=== PATIENT | female | born 1980 | race Caucasian/White ===

== ENCOUNTER 2018-01-04 21:49 | Emergency (ER) | payer OTHER ==
[~2018-01-04] VITALS: Ht 165.1 cm; Wt 56.7 kg
[~2018-01-04 21:49] MED LIST: LAMICTAL XR200 MG PO; NAPROSYN500 MG PO; ROBAXIN500 MG PO; XANAX 0.5 MG0.5 M1 PO; ZOFRAN4 MG PO
[2018-01-04] MEDS ORDERED: CYCLOBENZAPRINE10 MG PO (22:15)
[2018-01-04] MEDS ORDERED: ACETAMINOPHEN-1 EAC1 PO (22:15)
[2018-01-04] MEDS ORDERED: IBUPROFEN 600600 M1 PO (22:15)
[2018-01-04 22:24] VITALS: BP 128/53
== END 2018-01-04 22:25 | disposition home or self-care (01) ==
LOC: M.ERS 21:49
DX: S29.012A Strain of muscle and tendon of back wall of thorax, initial encounter (principal); M25.562 Pain in left knee; F32.9 Major depressive disorder, single episode, unspecified; Z90.710 Acquired absence of both cervix and uterus; Z88.6 Allergy status to analgesic agent; Z88.8 Allergy status to other drugs, medicaments and biological substances; V49.49XA Driver injured in collision with other motor vehicles in traffic accident, initial encounter; Y93.89 Activity, other specified; Y92.89 Other specified places as the place of occurrence of the external cause; Y99.8 Other external cause status

== ENCOUNTER 2018-05-24 07:39 | Emergency (ER) | payer OTHER ==
[~2018-05-24] VITALS: Ht 165.1 cm; Wt 54.4 kg
[~2018-05-24 07:39] MED LIST changes: +ACETAMINOPHEN-1 EAC1 PO; +CYCLOBENZAPRINE10 MG PO; +IBUPROFEN 600600 M1 PO
[2018-05-24 08:00] VITALS: BP 109/65
== END 2018-05-24 08:16 | disposition home or self-care (01) ==
LOC: M.ERS 07:39
DX: S20.412A Abrasion of left back wall of thorax, initial encounter (principal); R55 Syncope and collapse; F32.9 Major depressive disorder, single episode, unspecified; Z90.710 Acquired absence of both cervix and uterus; W22.8XXA Striking against or struck by other objects, initial encounter; Y93.89 Activity, other specified; Y92.89 Other specified places as the place of occurrence of the external cause; Y99.8 Other external cause status

== ENCOUNTER 2019-05-30 08:39 | Emergency (ER) | payer OTHER ==
[~2019-05-30] VITALS: Ht 165.1 cm; Wt 56.7 kg
[2019-05-30] MEDS ORDERED: SEROQUEL 50 MG50 MG PO (08:58)
[2019-05-30] MEDS ORDERED: BACTRIM DS TAB1 EACH PO (10:22)
[2019-05-30] MEDS ORDERED: KEFLEX500 M1 PO (10:22)
[2019-05-30] MEDS ORDERED: DIFLUCAN150 MG PO (10:22)
[2019-05-30 10:35] VITALS: BP 105/59
== END 2019-05-30 10:36 | disposition home or self-care (01) ==
LOC: M.ERS 08:39
DX: N60.81 Other benign mammary dysplasias of right breast (principal); F32.9 Major depressive disorder, single episode, unspecified; Z88.5 Allergy status to narcotic agent; Z88.6 Allergy status to analgesic agent; Z90.710 Acquired absence of both cervix and uterus; Z98.890 Other specified postprocedural states